=== PATIENT | male | born 1985 | race Caucasian/White ===

== ENCOUNTER 2017-06-25 11:03 | Emergency (ER) | payer MEDICAID ==
[~2017-06-25] VITALS: Ht 182.9 cm; Wt 86.0 kg
[2017-06-25 11:05] VITALS: BP 139/79
[2017-06-25] MEDS ORDERED: SODIUM CHLORIDE 0.9% 1,000 ML IV ONE (11:33)
[2017-06-25] MEDS ORDERED: SODIUM CHLORIDE FLUSH 10ML SYR IVF ONE (12:00)
[2017-06-25] MEDS ORDERED: SODIUM CHLORIDE 0.9% 1,000ML IVBOLUS ONE (12:00)
[2017-06-25 12:08] LABS: HEMATOCRIT 50.3 % (39.2-51.8); HEMOGLOBIN 17.3 g/dL (13.7-18.0)
[2017-06-25 12:18] LABS: BLOOD UREA NITROGEN 8 mg/dL (7-18)
[2017-06-25 12:23] LABS: ASPARTATE AMINO TRANSFERASE 82 U/L (15-37); IS PT STATUS REG ER OR PRE ER? YES
== END 2017-06-25 13:14 | disposition home or self-care (01) ==
LOC: ED 13:08
DX: R07.9 Chest pain, unspecified (principal); F41.1 Generalized anxiety disorder
CPT/HCPCS: 36415; 71020; 80053; 84484; 85025; 93005; 99285